=== PATIENT | female | born 1965 | race Caucasian/White ===

== ENCOUNTER 2019-07-03 08:36 | Emergency (ER) | payer OTHER ==
[~2019-07-03] VITALS: Ht 177.8 cm; Wt 81.7 kg
[~2019-07-03 08:36] MED LIST: HYDROCODON-ACE1 EAC8 PO; PROGESTERONE CREAM; STOOL SOFTENER240 MG; XARELTO10 MG PO
[2019-07-03] MEDS ORDERED: KEFLEX500 M1 PO (09:43)
[2019-07-03 10:08] VITALS: BP 133/86
== END 2019-07-03 10:09 | disposition home or self-care (01) ==
LOC: M.ERS 08:36
DX: S71.112A Laceration without foreign body, left thigh, initial encounter (principal); Z90.49 Acquired absence of other specified parts of digestive tract; W22.8XXA Striking against or struck by other objects, initial encounter; Y93.52 Activity, horseback riding; Y92.89 Other specified places as the place of occurrence of the external cause; Y99.8 Other external cause status